=== PATIENT | female | born 1975 | race Caucasian/White ===

== ENCOUNTER 2022-10-07 05:46 | Day surgery (SDC) | payer BC ==
[2022-10-04 12:21] VITALS: BMI 32.7
[2022-10-04 13:45] LABS: Hemoglobin 11.3 g/dL (12.0-15.5); Mean Corpuscular HGB CONC 30.5 g/dL (32.0-36.0); Mean Corpuscular Hemoglobin 25.1 pg (27.0-33.0); Mean Platelet Volume 10.8 fl (7.4-10.4); Platelet Count 313 10x3/uL (150-450); RBC Distribution Width 13.5 % (11.5-14.5); Red Blood Cell (RBC) Count 4.51 10x6/uL (3.90-5.03)
[2022-10-04 14:17] LABS: BHCG - Serum Negative (NEGATIVE); Pregs Control Background? CLEAR/WHITE (CLR/WHITE); Pregs Control Bar Appear? YES (CONTROL BAR)
[2022-10-07] MEDS ORDERED: Gabapentin 300 MG CAP ONE (06:14)
[2022-10-07] MEDS ORDERED: Famotidine/PF 20 mg/2ml Vial ONE (06:14)
[2022-10-07] MEDS ORDERED: CeleCOXIB 100 MG CAP ONE (06:14)
[2022-10-07] MEDS ORDERED: Bupivacaine HCl 0.5%/Epinephrine 1:200,000/PF 30 ml Vial ONE (06:52)
[2022-10-07] MEDS ORDERED: Midazolam HCl 2 mg/2 ml Vial ONE (07:04)
[2022-10-07] MEDS ORDERED: Lidocaine 1% PF 5 ML VIAL ONE (07:05)
[2022-10-07] MEDS ORDERED: Esmolol 100 MG/10 ML VIAL ONE (07:05)
[2022-10-07] MEDS ORDERED: Dexamethasone 4 mg/ml Vial ONE (07:05)
[2022-10-07] MEDS ORDERED: Rocuronium Bromide 10 MG/ML (10ML VIAL) ONE (07:05)
[2022-10-07] MEDS ORDERED: Ondansetron PF 4 MG/2 ML Vial ONE (07:05)
[2022-10-07] MEDS ORDERED: Propofol 1,000 MG/100 ML VIAL IV ONE (07:11)
[2022-10-07] MEDS ORDERED: SUGAMMADEX SODIUM 200 MG/2 ML VIAL ONE (07:11)
[2022-10-07] MEDS ORDERED: HYDROmorphone 0.5 MG/0.5 ML SYRINGE ONE (07:11)
[2022-10-07] MEDS ORDERED: Phenylephrine 10 MG/ML VIAL ONE (07:12)
[2022-10-07] MEDS ORDERED: CEFAZOLIN 2 GM VIAL ONE (07:19)
[2022-10-07] MEDS ORDERED: Fentanyl 100 MCG/2 ML VIAL ONE ×2 (08:02→09:13)
[2022-10-07] MEDS ORDERED: Labetalol HCl 100 MG/20 ML VIAL ONE (08:09)
[2022-10-07] MEDS ORDERED: Ketorolac Tromethamine 30 MG/ML VIAL ONE (09:01)
[2022-10-07] MEDS ORDERED: HYDROcodone/Acetaminophen 5/325 mg Tablet ONE (10:30)
== END 2022-10-07 12:10 | disposition home or self-care (01) ==
LOC: CSHSDC 05:46
PROVIDERS: ATTEND Obstetrics & Gynecology
PROC: 0UT94ZZ Resection of Uterus, Percutaneous Endoscopic Approach (ICD-10-PCS; principal; 2022-10-07)
PROC: 0UT74ZZ Resection of Bilateral Fallopian Tubes, Percutaneous Endoscopic Approach (ICD-10-PCS; principal; 2022-10-07)
DX: D25.9 Leiomyoma of uterus, unspecified (principal); N80.03 Adenomyosis of the uterus; N72 Inflammatory disease of cervix uteri; Z88.0 Allergy status to penicillin; Z79.899 Other long term (current) drug therapy
CPT/HCPCS: 36415; 84703; 85027; 86850; 86900; 86901; 88307; J1100; J1170; J1885; J2250; J2370; J2405; J2704; J3010; S0028